=== PATIENT | female | born 1950 | race Hispanic/Latino ===

== ENCOUNTER 2017-12-21 16:29 | Observation (INO) | payer BC, SELFPAY ==
[2017-12-21] MEDS ORDERED: Sodium Chloride 0.9% 500 ML IV STA (17:35)
[2017-12-21] MEDS ORDERED: Iohexol 350 MG/100 ML VIAL ONE (18:02)
[2017-12-21] MEDS ORDERED: Iohexol 240 (50 ml) ONE (18:03)
[2017-12-21 19:01] LABS: ALB/GLOB RATIO 1.4 (1.1-1.8)
[2017-12-21 19:11] LABS: BASO # 0.05 K/mm3 (0.0-2.0); BASO % 0.4 % (0.0-3.0); EOS # 0.2 (0.0-0.7); EOS % 1.6 % (1.5-5.0); GRAN # 7.02 (1.4-6.5); GRAN % 57.9 % (50.0-68.0); HEMOGLOBIN 15.9 g/dL (12.0-16.0); LYMPH % 33.1 % (22.0-35.0); MEAN CELL VOLUME 88.6 fl (80.0-105.0); MEAN CORPUSCULAR HEMOGLOBIN 29.7 pg (25.0-35.0); MEAN CORPUSCULAR HGB CONC 33.5 g/dl (31.0-37.0); MEAN PLATELET VOLUME 12.1 fl (7.0-11.0); MONO # 0.9 (0.1-0.6); RBC 5.35 10^6/uL (3.5-6.1); WHITE BLOOD COUNT 12.1 10^3/ul (4.5-11.0)
[2017-12-21 19:14] LABS: VENOUS BLOOD GAS BASE EXCESS 4.8 mmol/L (0.0-2.0); VENOUS BLOOD GAS PO2 43 mm/Hg (30-55); VENOUS BLOOD PH 7.34 (7.32-7.43)
[2017-12-21 19:17] LABS: ALBUMIN 4.8 g/dL (3.0-4.8); ALT/SGPT 33 U/L (7-56); AST/SGOT 25 U/L (14-36); BLOOD UREA NITROGEN 19 mg/dL (7-21); CALCIUM 9.9 mg/dL (8.4-10.5); GFR AFRICAN-AMERICAN > 60; GFR NON-AFRICAN AMERICAN > 60
[2017-12-21] MEDS ORDERED: Morphine 2 mg/ml ISec IVP STA (19:25)
[2017-12-21] MEDS ORDERED: Morphine 2 mg/2 mL syringe IVP STA (19:29)
[2017-12-21 19:30] LABS: PH,URINE 5.5 (4.7-8.0); URINE BILIRUBIN NEGATIVE (NEGATIVE); URINE BLOOD TRACE-LYSED (NEGATIVE); URINE GLUCOSE (UA) NEGATIVE (NEGATIVE); URINE LEUKOCYTE ESTERASE NEGATIVE Leu/uL (NEGATIVE); URINE PROTEIN NEGATIVE mg/dL (<30 mg/dL); URINE UROBILINOGEN 0.2 E.U./dL (<1 E.U./dL)
[2017-12-21 19:31] LABS: URINE APPEARANCE CLEAR (CLEAR); URINE COLOR YELLOW (YELLOW)
[2017-12-21 19:34] LABS: INR 0.99 (0.93-1.08); PARTIAL THROMBOPLASTIN TIME 32.9 Seconds (25.1-36.5); PROTHROMBIN TIME 11.3 SECONDS (9.4-12.5)
[2017-12-21 19:37] LABS: URINE EPITHELIAL CELLS 0 - 2 /hpf (0-5); URINE RBC NEGATIVE /hpf (0-2); URINE WBC NEGATIVE /hpf (0-6)
--- NOTE | 2017-12-21 19:44 | ED PDOC ---
Arrival/HPI - General Chief Complaint: Abdominal Pain Time Seen by Provider: 12/21/17 17:32 Historian: Patient - History of Present Illness Narrative History of Present Illness (Text): 67 y/o woman w/ pmhx of s/p appendectomy / rt sided inguinal? hernioraphy , HTn , recent 10/17/17 ua(-)/ ct a/p (-)/pelvic sonogram inconclusive w/u (workig dx was suspicious for rt sided ovarian torsion) presents c/o 1.5 weeks of constant rlq/rt sided pelvic w/ rt sided paralumbar radiation, which on 10/18/17 was associated with sudden onset flushing heat and nausea throughout her body which necessitated her pouring water on herself in a parking lot, as well as 2 episoes of vomiting, on day 3 of PMD Hung prescribed abx. Pt denies any other coropeal pain nor symptoms of infective foci. 12/21/17 19:37 12/21/17 19:[address] Persaud corroborated patient's assertions. PMD desires to be evaluated byt surgery potentially pending repeat ct a/p scan . Past Medical History - Provider Review Nursing Documentation Reviewed: Yes - Psychiatric Hx Substance Use: No - Anesthesia Hx Anesthesia: Yes Hx Anesthesia Reactions: No Hx Malignant Hyperthermia: No Family/Social History - Physician Review Nursing Documentation Reviewed: Yes Family/Social History: No Known Family HX Smoking Status: Never Smoked Hx Alcohol Use: No Hx Substance Use: No Allergies/Home Meds Allergies/Adverse Reactions: Allergies No Known Allergies Allergy (Verified 12/21/17 17:33) Review of Systems - Physician Review All systems were reviewed & negative as marked: Yes - Review of Systems Constitutional: Normal Eyes: Normal ENT: Normal Respiratory: Normal Cardiovascular: Normal Gastrointestinal: Abdominal Pain, Nausea, Vomiting Genitourinary Female: Normal Musculoskeletal: Normal Skin: Normal Neurological: Normal Endocrine: Normal Hemo/Lymphatic: Normal Psychiatric: Normal Physical Exam Vital Signs Pulse Resp Pulse Ox 12/21/17 16:30 72 18 98 Temperature: Afebrile Blood Pressure: Normal Pulse: Regular Respiratory Rate: Normal Appearance: Positive for: Well-Appearing, Non-Toxic, Uncomfortable Pain Distress: None Mental Status: Positive for: Alert and Oriented X 3 - Systems Exam Head: Present: Atraumatic, Normocephalic Pupils: Present: PERRL Extroacular Muscles: Present: EOMI Conjunctiva: Present: Normal Mouth: Present: Moist Mucous Membranes Neck: Present: Normal Range of Motion Respiratory/Chest: Present: Clear to Auscultation, Good Air Exchange. No: Respiratory Distress, Accessory Muscle Use Cardiovascular: Present: Regular Rate and Rhythm, Normal S1, S2. No: Murmurs Abdomen: Present: Other (rt sided pelvic pain ). No: Tenderness, Distention, Peritoneal Signs Back: Present: Normal Inspection Upper Extremity: Present: Normal Inspection. No: Cyanosis, Edema Lower Extremity: Present: Normal Inspection. No: Edema Neurological: Present: GCS=15, CN II-XII Intact, Speech Normal, Motor Func Grossly Intact, Normal Sensory Function, Normal Cerebellar Funct, Norm Deep Tendon Reflexes, Gait Normal, Memory Normal, Normal 2Pt Descrimination, Other Skin: Present: Warm, Dry, Normal Color. No: Rashes Psychiatric: Present: Alert, Oriented x 3, Normal Insight, Normal Concentration Medical Decision Making ED Course and Treatment: 67 y/o woman w/ rt sided pelvic pain differential dx ; diverticulitis vs displaced hernia mesh w/ edema vs torsed ovary ct a/p risk stratify w/ labs ivf/antiemetics/ analgesics. 12/21/17 19:46 12/21/17 19:48 pt was signed out to Dr. Harrell (whom is covering Dr. Persaud ) in a transfer of care - Lab Interpretations Lab Results: 12/21/17 18:29 12/21/17 18:29 Lab Results 12/21/17 19:20: Urine Color Yellow, Urine Appearance Clear, Urine pH 5.5, Ur Specific [place] 1.025, Urine Protein Negative, Urine Glucose (UA) Negative, Urine Ketones Negative, Urine Blood Trace-lysed H, Urine Nitrate Negative, Urine Bilirubin Negative, Urine Urobilinogen 0.2, Ur Leukocyte Esterase Negative , Urine RBC Negative, Urine WBC Negative, Ur Epithelial Cells 0 - 2 12/21/17 19:15: PT 11.3, INR 0.99, APTT 32.9 12/21/17 18:29: Sodium 143, Chloride 100, Potassium 4.1, Carbon Dioxide 30, Anion Gap 17, BUN 19, Creatinine 0.7, Est GFR ( Amer) > 60, Est GFR (Non- Af Amer) > 60, Random Glucose 101, Calcium 9.9, Magnesium 2.1, Total Bilirubin 0.3, AST 25, ALT 33, Alkaline Phosphatase 72, Total Protein 8.2, Albumin 4.8, Globulin 3.5, Albumin/Globulin Ratio 1.4 12/21/17 18:29: WBC 12.1 H, RBC 5.35, Hgb 15.9, Hct 47.4, MCV 88.6, MCH 29.7, MCHC 33.5, RDW 14.0, Plt Count 234, MPV 12.1 H, Gran % 57.9, Lymph % (Auto) 33.1 , [place] % (Auto) 7.0 H, Eos % (Auto) 1.6, Baso % (Auto) 0.4, Gran # 7.02 H, Lymph # (Auto) 4.0 H, [place] # (Auto) 0.9 H, Eos # (Auto) 0.2, Baso # (Auto) 0.05 12/21/17 18:15: pO2 43, VBG pH 7.34, VBG pCO2 60.0, VBG HCO3 32.4 H, VBG Total CO2 34.2 H, VBG O2 Sat (Calc) 82.6 H, VBG Base Excess 4.8 H, VBG Potassium 4.3, Sodium 139.0, Chloride 104.0, Glucose 101, Lactate 0.9, FiO2 21.0, Venous Blood Potassium 4.3 - RAD Interpretation Radiology Orders: 12/21/17 17:35 CHEST PORTABLE [RAD] Stat 12/21/17 17:43 ABDOMEN & PELVIS [ABD PELVIS PO & IV CONTRAST] [CT] Stat - Medication Orders Current Medication Orders: Discontinued Medications Sodium Chloride (Sodium Chloride 0.9%) 500 mls @ 1,000 mls/hr IV .Q30M STA Stop: 12/21/17 18:04 Last Admin: 12/21/17 18:43 Dose: 1,000 mls/hr eMAR Start Stop Document 12/21/17 18:43 OCS (Rec: 12/21/17 18:43 OCS [id number]) Intravenous Solution Start Date 12/21/17 Start Time 18:43 End Date 12/21/17 End time 19:13 Total Infusion Time 30 Morphine Sulfate (Morphine) 2 mg IVP STAT STA Stop: 12/21/17 19:30 Last Admin: 12/21/17 19:32 Dose: 2 mg IVP Administration Document 12/21/17 19:32 CNR (Rec: 12/21/17 19:33 CNR [id number]) Charges for Administration # of IVP Administrations 1 Ondansetron HCl (Zofran Inj) 4 mg IVP STAT STA Stop: 12/21/17 17:46 Last Admin: 12/21/17 18:43 Dose: 4 mg IVP Administration Document 12/21/17 18:43 OCS (Rec: 12/21/17 18:43 OCS [id number]) Charges for Administration # of IVP Administrations 1 Disposition/Present on Arrival - Present on Arrival Any Indicators Present on Arrival: No History of DVT/PE: No History of Uncontrolled Diabetes: No Urinary Catheter: No History of Decub. Ulcer: No History Surgical Site Infection Following: None - Disposition Have Diagnosis and Disposition been Completed?: Yes Diagnosis: Intractable lower abdominal pain Disposition: HOSPITALIZED Disposition Time: 19:47 Patient Plan: Admission Patient Problems: Current Active Problems Problem Status Onset Intractable lower abdominal pain Acute Condition: FAIR
[2017-12-21] MEDS: metroNIDAZOLE IV 250mg/50 ml 250 MG/50 ML BAG IV SCH (23:35)
[2017-12-21] MEDS: Dextrose 5%/0.45% NS 1,000 ML IV SCH (23:36)
[2017-12-22 03:38] VITALS: BMI 34.0
[2017-12-22] MEDS: metroNIDAZOLE IV 250mg/50 ml 250 MG/50 ML BAG IV SCH (05:42)
--- NOTE | 2017-12-22 06:05 | CP.PCM.CON ---
<Priti Gordillo - Last Filed: 12/22/17 08:24> History of Present Illness - History of Present Illness History of Present Illness: General surgery consult note for Dr. Luis Gordillo, PGY-1 Pt S & E at bedside at 0530 67F w/PMH sig for HTN, hx right ovarian cyst rupture consulted for RLQ ab pain x almost 2 weeks. Pt reports sudden onset of RLQ ab pain on 12/10, no inciting events noted. Pain is sharp, constant, moderate-severe, radiates to low back. No aggravating or alleviating factors identified. Pt reports going to [facility] one week after onset with finding of blood in her urine. Pt reports episode of diaphoresis and "feeling overheated" while in a store a few days after visit to [facility], poured water overherself. Pt seen by PMD with recommendations to be evaluated in hospital after incident. Admits to extreme hunger, some nausea after drinking apple juice, occasional straining to defecate. Denies emesis, F & C, abnormal vaginal discharge, constipation, diarrhea, change in stool character, chest pain, SOB, other complaints. On evaluation, pt resting comfortably in bed, sleeping. CT ab in ED pending official read, slight leukocytosis of 12.1, electrolytes WNL. Afebrile. PMH: HTN, R ovarian cyst s/p rupture (remote) PSH: Appendectomy, Right inguinal hernia repair, Right knee sx, All: Strawberries, chocolate, cats, PCN SH: Denies ETOH use, admits to tobacco use 1 ppd x 53 yrs, denies illicit drug use FH: Non contributory PMD: Hung Review of Systems - Review of Systems All systems: reviewed and no additional remarkable complaints except - Constitutional Constitutional: Increased Appetite. absent: Chills, Fever, Headache - EENT Eyes: Change in Vision Nose/Mouth/Throat: absent: Sore Throat - Cardiovascular Cardiovascular: absent: Chest Pain, Leg Edema - Respiratory Respiratory: absent: Cough - Gastrointestinal Gastrointestinal: Abdominal Pain, Change in Bowel Habits (straining), Nausea. absent: Change in Stool Character, Constipation, Diarrhea, Hematemesis, Hematochezia, Vomiting - Genitourinary Genitourinary: absent: Change in Urinary Stream, Dysuria - Reproductive: Female Reproductive:Female: absent: Vaginal Discharge - Musculoskeletal Musculoskeletal: absent: Numbness, Tingling - Integumentary Integumentary: absent: Skin Pain - Neurological Neurological: absent: Weakness Past Patient History - Past Social History Smoking Status: Light Smoker < 10 Cigarettes Daily - CARDIAC Hx Hypertension: Yes - PULMONARY Hx Pneumonia: Yes (2017) - NEUROLOGICAL Hx Neurological Disorder: No - HEENT Hx HEENT Problems: No - RENAL Hx Chronic Kidney Disease: No - ENDOCRINE/METABOLIC Hx Endocrine Disorders: No - HEMATOLOGICAL/ONCOLOGICAL Hx Blood Disorders: No - INTEGUMENTARY Hx Dermatological Problems: No - MUSCULOSKELETAL/RHEUMATOLOGICAL Hx Falls: No - GASTROINTESTINAL Hx Gastrointestinal Disorders: No - PSYCHIATRIC Hx Psychophysiologic Disorder: No Hx Substance Use: No - SURGICAL HISTORY Hx Surgeries: Yes Other/Comment: appendectomy - ANESTHESIA Hx Anesthesia: Yes Hx Anesthesia Reactions: No Hx Malignant Hyperthermia: No Meds Home Medications: Home Medication List Medication Instructions Recorded Confirmed Type oxyCODONE/Acetaminophen [Percocet 1 tab PO TID PRN #15 tab 12/23/17 Rx 5/325 mg Tab] Allergies/Adverse Reactions: Allergies Allergy/AdvReac Type Severity Reaction Status Date / Time Penicillins Allergy Intermediate RASH Verified 12/22/17 06:55 strawberry Allergy Intermediate ITCHING Verified 12/22/17 06:55 - Medications Medications: Current Medications Acetaminophen (Tylenol 325mg Tab) 650 mg PO Q6H PRN PRN Reason: Fever >100.4 F Dextrose/Sodium Chloride (Dextrose 5%/0.45% Ns 1000 Ml) 1,000 mls @ 100 mls/hr IV .Q10H [facility] Last Admin: 12/21/17 23:36 Dose: 100 mls/hr Metronidazole (Flagyl) 250 mg in 50 mls @ 100 mls/hr IV Q8 [facility] PRN Reason: Protocol Stop: 12/26/17 22:46 Last Admin: 12/22/17 05:42 Dose: 100 mls/hr Ceftriaxone Sodium (Rocephin 1 Gram Ivpb) 1 gm in 100 mls @ 100 mls/hr IVPB DAILY [facility] PRN Reason: Protocol Morphine Sulfate (Morphine) 5 mg IVP Q6H PRN PRN Reason: Pain, moderate (4-7) Last Admin: 12/22/17 01:08 Dose: 5 mg Ondansetron HCl (Zofran Inj) 4 mg IVP Q6H PRN PRN Reason: Nausea/Vomiting Pantoprazole Sodium (Protonix Inj) 40 mg IVP DAILY [facility] Physical Exam - Constitutional Appears: Non-toxic, No Acute Distress - Head Exam Head Exam: ATRAUMATIC, NORMAL INSPECTION, NORMOCEPHALIC - Eye Exam Eye Exam: EOMI, Normal appearance - ENT Exam ENT Exam: Mucous Membranes Moist, Normal Exam - Neck Exam Neck exam: Positive for: Full Rom, Normal Inspection - Respiratory Exam Respiratory Exam: Clear to Auscultation Bilateral, NORMAL BREATHING PATTERN - Cardiovascular Exam Cardiovascular Exam: REGULAR RHYTHM, +S1, +S2 - GI/Abdominal Exam GI & Abdominal Exam: Normal Bowel Sounds, Soft. absent: Distended, Firm, Guarding, Hernia, Rebound, Rigid, Tenderness - Extremities Exam Extremities exam: Positive for: normal inspection. Negative for: pedal edema - Neurological Exam Neurological exam: Alert, CN II-XII Intact, Oriented x3 - Psychiatric Exam Psychiatric exam: Anxious - Skin Skin Exam: Dry, Intact, Normal Color, Warm Results - Vital Signs Recent Vital Signs: Last Vital Signs Temp 97.7 F 12/22/17 01:54 Pulse 67 12/22/17 01:54 Resp 20 12/22/17 01:54 BP 147/74 12/22/17 01:54 Pulse Ox 96 12/22/17 00:10 - Labs Result Diagrams: 12/22/17 06:20 12/22/17 06:20 Assessment & Plan - Assessment and Plan (Free Text) Assessment: 67F w/RLQ ab pain Plan: Pt currently on Rocephin, Flagyl, clear liquid diet as per primary FU CT ab report Pain control PRN Further recs pending attending evaluation Will DW attending Rand, PGY-1 - Date & Time Date: 12/22/17 Time: 06:07 <Patrick Raymond - Last Filed: 12/24/17 11:07> Meds - Medications Medications: Current Medications Acetaminophen (Tylenol 325mg Tab) 650 mg PO Q6H PRN PRN Reason: Fever >100.4 F Dextrose/Sodium Chloride (Dextrose 5%/0.45% Ns 1000 Ml) 1,000 mls @ 50 mls/hr IV .Q20H [facility] Last Admin: 12/22/17 13:03 Dose: 50 mls/hr Ibuprofen (Motrin Tab) 600 mg PO Q8H [facility] Last Admin: 12/22/17 12:56 Dose: 600 mg Methylprednisolone (Solu-Medrol) 40 mg IV Q12 [facility] Last Admin: 12/22/17 13:00 Dose: 40 mg Morphine Sulfate (Morphine) 5 mg IVP Q6H PRN PRN Reason: Pain, moderate (4-7) Last Admin: 12/22/17 09:01 Dose: 5 mg Ondansetron HCl (Zofran Inj) 4 mg IVP Q6H PRN PRN Reason: Nausea/Vomiting Pantoprazole Sodium (Protonix Inj) 40 mg IVP DAILY [facility] Last Admin: 12/22/17 08:59 Dose: 40 mg Results - Vital Signs Recent Vital Signs: Last Vital Signs Temp 97.8 F 12/22/17 06:00 Pulse 61 12/22/17 06:00 Resp 20 12/22/17 06:00 BP 116/58 L 12/22/17 06:00 Pulse Ox 95 12/22/17 06:00 - Labs Result Diagrams: 12/23/17 06:20 12/23/17 06:20 Labs: Laboratory Results - last 24 hr 12/22/17 12/22/17 12/22/17 06:20 06:20 06:20 WBC 9.5 D RBC 4.50 Hgb 13.0 D Hct 39.8 MCV 88.4 MCH 28.9 MCHC 32.7 RDW 14.0 Plt Count 253 MPV 11.2 H Gran % 51.8 Lymph % (Auto) 37.6 H [place] % (Auto) 8.5 H Eos % (Auto) 1.8 Baso % (Auto) 0.3 Gran # 4.91 Lymph # (Auto) 3.6 H [place] # (Auto) 0.8 H Eos # (Auto) 0.2 Baso # (Auto) 0.03 Sodium 140 Potassium 3.8 Chloride 104 Carbon Dioxide 29 Anion Gap 11 BUN 14 Creatinine 0.6 L Est GFR ( Amer) > 60 Est GFR (Non-Af Amer) > 60 Random Glucose 95 Calcium 8.4 Total Bilirubin 0.4 AST 28 ALT 27 Alkaline Phosphatase 53 Total Protein 6.6 Albumin 3.7 Globulin 2.9 Albumin/Globulin Ratio 1.3 Free T4 1.12 TSH 3rd Generation 3.25 Assessment & Plan - Assessment and Plan (Free Text) Assessment: Sudden onset R Groin Pain/Stoic patient/No precipitating events/Imaging CT NEG Imp: Groin strain-?Hemorrhage/Incipient recurrent ventral hernia Russ: MRI Hip(r/o aseptic necrosis) Trial local anesthetic=precipitating pain/nausea/limited effect Anti inflammatory Rx started-If not responding Exploration will be recommended This consult done under my direct supervision Ariana Raymond MD FACS
[2017-12-22 06:55] LABS: BASO # 0.03 K/mm3 (0.0-2.0); BASO % 0.3 % (0.0-3.0); EOS # 0.2 (0.0-0.7); EOS % 1.8 % (1.5-5.0); GRAN # 4.91 (1.4-6.5); GRAN % 51.8 % (50.0-68.0); LYMPH # 3.6 (1.2-3.4); LYMPH % 37.6 % (22.0-35.0); MEAN CELL VOLUME 88.4 fl (80.0-105.0); MEAN CORPUSCULAR HEMOGLOBIN 28.9 pg (25.0-35.0); MEAN CORPUSCULAR HGB CONC 32.7 g/dl (31.0-37.0); MEAN PLATELET VOLUME 11.2 fl (7.0-11.0); MONO # 0.8 (0.1-0.6); MONO % 8.5 % (1.0-6.0); RBC 4.5 10^6/uL (3.5-6.1); WHITE BLOOD COUNT 9.5 10^3/ul (4.5-11.0)
[2017-12-22 07:35] LABS: FREE T4 1.12 ng/dL (0.78-2.19)
[2017-12-22 07:52] LABS: ALB/GLOB RATIO 1.3 (1.1-1.8); ALBUMIN 3.7 g/dL (3.0-4.8); ALT/SGPT 27 U/L (7-56); AST/SGOT 28 U/L (14-36); BLOOD UREA NITROGEN 14 mg/dL (7-21); CALCIUM 8.4 mg/dL (8.4-10.5); GFR AFRICAN-AMERICAN > 60; GFR NON-AFRICAN AMERICAN > 60
[2017-12-22] MEDS: Dextrose 5%/0.45% NS 1,000 ML IV SCH (09:02)
--- NOTE | 2017-12-22 09:14 | CT ---
PROCEDURE: CT Abdomen and Pelvis with contrast HISTORY: rlq pain s/p hernioraphyy/appctomy" r/o edema/ov t COMPARISON: None. TECHNIQUE: Contrast dose: Radiation dose: Total exam DLP = mGy-cm. This CT exam was performed using one or more of the following dose reduction techniques: Automated exposure control, adjustment of the mA and/or kV according to patient size, and/or use of iterative reconstruction technique. FINDINGS: LOWER THORAX: Bullous emphysematous changes. LIVER: Unremarkable. No gross lesion or ductal dilatation. GALLBLADDER AND BILE DUCTS: Unremarkable. PANCREAS: Unremarkable. No gross lesion or ductal dilatation. SPLEEN: Unremarkable. ADRENALS: Unremarkable. No mass. KIDNEYS AND URETERS: 3 centimeter left lower pole renal cyst. No hydronephrosis. No solid mass. VASCULATURE: Unremarkable. No aortic aneurysm. BOWEL: Unremarkable. No obstruction. No gross mural thickening. APPENDIX: Normal appendix. PERITONEUM: Unremarkable. No free fluid. No free air. LYMPH NODES: Unremarkable. No enlarged lymph nodes. BLADDER: Unremarkable. REPRODUCTIVE: Unremarkable. BONES: No acute fracture. OTHER FINDINGS: None. IMPRESSION: Left renal cyst. Bullous emphysema.
--- NOTE | 2017-12-22 09:23 | RAD ---
HISTORY: routin med exam COMPARISON: No prior. FINDINGS: LUNGS: No active pulmonary disease. PLEURA: No significant pleural effusion identified, no pneumothorax apparent. CARDIOVASCULAR: Normal. OSSEOUS STRUCTURES: No significant abnormalities. VISUALIZED UPPER ABDOMEN: Normal. OTHER FINDINGS: None. IMPRESSION: No active disease.
[2017-12-22] MEDS ORDERED: cefTRIAXone 1 gm 1 GM/100 ML BAG IVPB SCH (10:00)
[2017-12-22] MEDS ORDERED: Lidocaine 2% Inj (20ml) IJ STA (10:56)
[2017-12-22] MEDS ORDERED: Dextrose 5%/0.45% NS 1,000 ML IV SCH (12:21)
[2017-12-22] MEDS: MethylPREDNISolone 40 mg Vial IV SCH ×2 (13:00→21:01)
--- NOTE | 2017-12-22 13:53 | HP ---
DATE: The patient is 67 years old. I saw her in office last week with complaint of right lower quadrant to right upper thigh pain. The patient states she went to [facility], had CT scan of the abdomen and pelvis done, was unremarkable. Also, pelvic sonogram was unremarkable. She came to my office, I checked her urine, had trace leukocytes, gave her Cipro and Ultracet and although I recommended her to go to emergency room for further evaluation, but she said it is her son's birthday, she does not want to miss that, so if pain got worse, she will go to the ER so she came to ER yesterday, complained of pain in the right lower quadrant area associated with nausea, no history of diarrhea. No hemoptysis, no hematemesis. PAST MEDICAL HISTORY: Significant for hypertension and history of right inguinal hernia repair 40 years ago. ALLERGIES: SHE IS ALLERGIC TO PENICILLIN AND STRAWBERRIES. MEDICATIONS AT HOME: She was recently given Cipro and Ultracet. REVIEW OF SYSTEMS: Significant for rule out lower quadrant pain. PHYSICAL EXAMINATION: GENERAL: She is awake, alert, oriented, communicative. VITAL SIGNS: She is afebrile, pulse 61, respirations 20, blood pressure 116/58. LUNGS: Bilateral fair airflow. No rhonchi or crackles. HEART: S1 and S2 audible. ABDOMEN: Soft, nontender. No rebound, no guarding. NEUROLOGICAL: The patient is awake, alert, oriented, communicative, ambulated with the cane. LABORATORY DATA: On arrival, WBC of 12, followup is 9.5. Chemistry: Sodium 140, potassium 3.8, chloride 104, CO2 29, BUN 14, creatinine 0.6, blood sugar of 95. LFT's are within normal limits. She has trace blood in the urine. Her CT scan of the abdomen showed a left renal cyst, otherwise unremarkable. ASSESSMENT AND PLAN: 1. Right lower quadrant pain, etiology still unclear. 2. Chronic obstructive pulmonary disease. 3. Borderline hypertension. PLAN: I will start her on antiinflammatory, gave her Novocain with no significant relief. I will order for MRI of the right hip and we will give her small dose of methylprednisolone, continue her on IV fluids. Follow up this patient in the morning. Megan Persaud MD [facility] # [id number]
--- NOTE | 2017-12-22 20:45 | CP.PCM.PCO ---
Physician Communication Note - Physician Communication Note Physician Communication Note: RLQ Pain confirmed by Local Injection-? Explore Hernia
[2017-12-23 06:52] LABS: BASO # 0.01 K/mm3 (0.0-2.0); BASO % 0.1 % (0.0-3.0); GRAN # 13.62 (1.4-6.5); GRAN % 90.8 % (50.0-68.0); LYMPH # 1.1 (1.2-3.4); LYMPH % 7.3 % (22.0-35.0); MEAN CELL VOLUME 86.2 fl (80.0-105.0); MEAN CORPUSCULAR HEMOGLOBIN 29.2 pg (25.0-35.0); MEAN CORPUSCULAR HGB CONC 33.9 g/dl (31.0-37.0); MEAN PLATELET VOLUME 11.2 fl (7.0-11.0); MONO # 0.3 (0.1-0.6); MONO % 1.8 % (1.0-6.0); PLATELET COUNT 181 10^3/uL (120.0-450.0); RBC 4.79 10^6/uL (3.5-6.1); RED CELL DISTRIBUTION WIDTH 13.6 % (11.5-14.5)
[2017-12-23 07:22] LABS: BLOOD UREA NITROGEN 13 mg/dL (7-21); CALCIUM 8.9 mg/dL (8.4-10.5); GFR AFRICAN-AMERICAN > 60; GFR NON-AFRICAN AMERICAN > 60
[2017-12-23 07:29] VITALS: BP 152/63; PULSE 70; RESP 21; TEMP 97.5; O2SAT 93
--- NOTE | 2017-12-23 07:44 | CP.PCM.PN ---
<Priti Gordillo - Last Filed: 12/23/17 07:43> Subjective - Date & Time of Evaluation Date of Evaluation: 12/23/17 Time of Evaluation: 07:43 - Subjective Subjective: General surgery progress note for Dr. Raymond-Priti Gordillo, PGY-1 Pt S & E at bedside at 0650 Pt is resting comfortably in bed. Pt reports continued RLQ ab pain, had some nausea after eating yesterday. Denies F & C, other complaints. A febrile, now with leukocytosis of 15.0 from 9.5. Objective - Vital Signs/Intake and Output Vital Signs (last 24 hours): Temp Pulse Resp BP Pulse Ox 97.5 F L 70 21 152/63 H 93 L 12/23/17 06:00 12/23/17 06:00 12/23/17 06:00 12/23/17 06:00 12/23/17 06:00 Intake and Output: 12/23/17 12/23/17 06:59 18:59 Intake Total 360 Balance 360 - Medications Medications: Current Medications Acetaminophen (Tylenol 325mg Tab) 650 mg PO Q6H PRN PRN Reason: Fever >100.4 F Dextrose/Sodium Chloride (Dextrose 5%/0.45% Ns 1000 Ml) 1,000 mls @ 50 mls/hr IV .Q20H [facility] Last Admin: 12/22/17 13:03 Dose: 50 mls/hr Ibuprofen (Motrin Tab) 600 mg PO Q8H [facility] Last Admin: 12/22/17 20:46 Dose: 600 mg Methylprednisolone (Solu-Medrol) 40 mg IV Q12 [facility] Last Admin: 12/22/17 21:01 Dose: 40 mg Morphine Sulfate (Morphine) 5 mg IVP Q6H PRN PRN Reason: Pain, moderate (4-7) Last Admin: 12/22/17 09:01 Dose: 5 mg Ondansetron HCl (Zofran Inj) 4 mg IVP Q6H PRN PRN Reason: Nausea/Vomiting Pantoprazole Sodium (Protonix Inj) 40 mg IVP DAILY [facility] Last Admin: 12/22/17 08:59 Dose: 40 mg - Labs Labs: 12/23/17 06:20 12/23/17 06:20 PT 11.3 SECONDS (9.4-12.5) 12/21/17 19:15 INR 0.99 (0.93-1.08) 12/21/17 19:15 APTT 32.9 Seconds (25.1-36.5) 12/21/17 19:15 - Constitutional Appears: Non-toxic, No Acute Distress - Head Exam Head Exam: ATRAUMATIC, NORMAL INSPECTION, NORMOCEPHALIC - Eye Exam Eye Exam: EOMI, Normal appearance - ENT Exam ENT Exam: Mucous Membranes Moist, Normal Exam - Neck Exam Neck Exam: Full ROM, Normal Inspection - Respiratory Exam Respiratory Exam: NORMAL BREATHING PATTERN - Cardiovascular Exam Cardiovascular Exam: REGULAR RHYTHM, +S1, +S2 - GI/Abdominal Exam GI & Abdominal Exam: Soft. absent: Distended (obese), Firm, Guarding, Rigid, Tenderness - Extremities Exam Extremities Exam: Normal Inspection. absent: Pedal Edema - Neurological Exam Neurological Exam: Alert, Awake, CN II-XII Intact, Oriented x3 - Psychiatric Exam Psychiatric exam: Normal Affect, Normal Mood - Skin Skin Exam: Dry, Intact, Normal Color, Warm Assessment and Plan - Assessment and Plan (Free Text) Assessment: 67F w/RLQ ab/Right groin pain Plan: CT ab w/L renal cyst, bullous emphysema FU Hip MRI Further recs pending imaging results Monitor Will DW attending Rand, PGY-1 <Patrick Raymond - Last Filed: 12/23/17 09:56> Objective - Vital Signs/Intake and Output Vital Signs (last 24 hours): Temp Pulse Resp BP Pulse Ox 97.5 F L 70 21 152/63 H 93 L 12/23/17 06:00 12/23/17 06:00 12/23/17 06:00 12/23/17 06:00 12/23/17 06:00 Intake and Output: 12/23/17 12/23/17 06:59 18:59 Intake Total 360 Balance 360 - Medications Medications: Current Medications Acetaminophen (Tylenol 325mg Tab) 650 mg PO Q6H PRN PRN Reason: Fever >100.4 F Dextrose/Sodium Chloride (Dextrose 5%/0.45% Ns 1000 Ml) 1,000 mls @ 50 mls/hr IV .Q20H [facility] Last Admin: 12/22/17 13:03 Dose: 50 mls/hr Ibuprofen (Motrin Tab) 600 mg PO Q8H [facility] Last Admin: 12/22/17 20:46 Dose: 600 mg Methylprednisolone (Solu-Medrol) 40 mg IV Q12 [facility] Last Admin: 12/22/17 21:01 Dose: 40 mg Morphine Sulfate (Morphine) 5 mg IVP Q6H PRN PRN Reason: Pain, moderate (4-7) Last Admin: 12/22/17 09:01 Dose: 5 mg Ondansetron HCl (Zofran Inj) 4 mg IVP Q6H PRN PRN Reason: Nausea/Vomiting Pantoprazole Sodium (Protonix Inj) 40 mg IVP DAILY [facility] Last Admin: 12/22/17 08:59 Dose: 40 mg - Labs Labs: 12/23/17 06:20 12/23/17 06:20 PT 11.3 SECONDS (9.4-12.5) 12/21/17 19:15 INR 0.99 (0.93-1.08) 12/21/17 19:15 APTT 32.9 Seconds (25.1-36.5) 12/21/17 19:15 Assessment and Plan - Assessment and Plan (Free Text) Assessment: WBC secondary to Medrol IV Sx of nausea Preceded eating-Immediately following RLQ Injection Which did replicate the pain prompting admission Awaiting MRI but if sx persist Exploration for Hernia Will be needed This evaluation done under my direct supervision' Ariana Raymond MD FACS
[2017-12-23 08:04] LABS: LYMPHOCYTE 7 % (22.0-35.0); MONOCYTE 2 % (1.0-6.0); NEUTROPHIL 91 % (50.0-70.0); PLATELET ESTIMATE NORMAL (NORMAL)
--- NOTE | 2017-12-23 11:29 | MRI ---
PROCEDURE: MRI of the right hip without contrast HISTORY: intractible pain COMPARISON: TECHNIQUE: MRI of the pelvis and right hip was performed in multiple planes using multiple pulse sequences. FINDINGS: The bone marrow signal intensity of the hip is unremarkable. There is no evidence of bone bruise or fracture. There is no evidence of avascular necrosis. There is no joint effusion. There is no evidence of an inflamed trochanteric bursa. The muscles are normal in signal intensity. IMPRESSION: Negative study
[2017-12-23] MEDS: MethylPREDNISolone 40 mg Vial IV SCH (13:09)
--- NOTE | 2017-12-23 23:23 | CON ---
DATE: 12/23/2017 CONSULTATION IN GASTROENTEROLOGY REQUESTING PHYSICIAN: Megan Persaud MD. REASON FOR CONSULT: I have been asked to see this 67-year-old female, who comes to the hospital with 2 weeks of right lower quadrant abdominal pain and right hip pain. She went to the emergency room at [facility] and apparently a CT scan of the abdomen and pelvis in the emergency room was negative for any acute changes. She was discharged home. She continued to have pain. She was admitted to [facility] for further evaluation. The patient states that the pain is continuous and non-remitting. There are no provocative or palliative features to her abdominal pain. She did have an appendectomy approximately 50 years ago. She also had a right inguinal hernia repair about 30 years ago. She denies any rectal bleeding, nausea, vomiting, hematemesis, fevers or chills. Repeat CT scan of the abdomen and pelvis performed at this hospital just revealed a left renal cyst and bullous emphysema without any acute changes in the abdomen and pelvis. PAST MEDICAL HISTORY: Notable for hypertension. PAST SURGICAL HISTORY: Notable for appendectomy, right inguinal repair. SOCIAL HISTORY: She is a former smoker. She denies alcohol use. FAMILY HISTORY: Noncontributory. REVIEW OF SYSTEMS: Fourteen-point review of systems is notable for right lower quadrant abdominal pain and right hip pain. MEDICATIONS AT HOME: Cipro and Ultracet. PHYSICAL EXAMINATION: GENERAL: Well-developed female, obese, sitting in a chair, in no acute distress. VITAL SIGNS: Reveal temperature of 97.5, blood pressure 152/63, heart rate of 70. HEENT: Reveals sclerae to be white. Conjunctivae pink. NECK: Supple. CHEST: Reveals lungs to be clear. HEART: Reveals a regular rate and rhythm. ABDOMEN: Soft, obese. Mild right lower quadrant tenderness. No rebound. No guarding. EXTREMITIES: Show no edema. LABORATORY DATA: Reveals white blood cell count of 15, hemoglobin 14. Chemistries reveal normal electrolytes with a blood sugar of 159. IMPRESSION: A 67-year-old female with 2 weeks of right lower quadrant abdominal pain with a negative CT scan. She has also had right hip pain and an MRI of the hip showed no evidence of avascular necrosis and was a negative study. Etiology of the right lower quadrant pain is either musculoskeletal pain versus scar tissue. RECOMMENDATIONS: The patient is to be discharged home with outpatient followup. She has never had a colonoscopy. I have encouraged her to see me in the office to schedule a colonoscopy as an outpatient. Andrew Diallo MD
--- NOTE | 2017-12-24 09:17 | DS ---
HISTORY OF PRESENT ILLNESS: The patient is 67 years old, seen and examined. She states her pain is 8/10, it is a little better since she is on antiinflammatory. No nausea or vomiting. No diarrhea. PHYSICAL EXAMINATION: VITAL SIGNS: She is afebrile, pulse 70, respirations 21, blood pressure 152/63. LUNGS: Bilateral good airflow. No rhonchi or crackle. HEART: S1, S2 audible. ABDOMEN: Soft, nontender. No rebound, no guarding. She has pain in the right inguinal area. No history of nausea or vomiting. Does complain of having some change in bowel movement; however, there is no hemoptysis, no hematemesis. NEUROLOGIC: She is awake, alert, oriented, communicative. LABORATORY DATA: Her WBC is 15, hemoglobin 14, hematocrit 41, platelet 181. Chemistry: Sodium 141, potassium 4.1, chloride 106, CO2 26, BUN 13, creatinine 0.6, blood sugar of 159. ASSESSMENT: 1. Right inguinal pain probably secondary to old scar tissue, no abdominal pathology detected and MRI of her hip is also unremarkable. 2. Hypertension. PLAN: The patient is going to be discharged home today on Celebrex 200 daily, she will use tramadol as needed and Percocet for severe pain and also ,give her small dose of steroid and if the pain does not improve, she might have to consider laparoscopic surgery for scar over the Megan Persaud MD
== END 2017-12-23 14:35 | disposition home or self-care (01) ==
LOC: ED 16:29 → ERH 23:06 → 5RNO 12-22 00:39
PROVIDERS: ADMIT Internal Medicine; ATTEND Internal Medicine
DX: R10.31 Right lower quadrant pain (principal); I10 Essential (primary) hypertension; N83.201 Unspecified ovarian cyst, right side; N28.1 Cyst of kidney, acquired; J44.9 Chronic obstructive pulmonary disease, unspecified; Z87.891 Personal history of nicotine dependence; Z88.0 Allergy status to penicillin
CPT/HCPCS: 36415; 71045; 73721; 74177; 80048; 80053; 81001; 82803; 83735; 84439; 84443; 85025; 85610; 85730; 87040; 87086; 96365; 96375; 96376; 99285; C9113; G0378; J2270; J2405; J2920; J7040; J7042; Q9966; Q9967